=== PATIENT | male | born 1950 | race Caucasian/White ===

== ENCOUNTER → 2021-01-27 | Outpatient (CLI) | payer MEDICARE | LOC: NM 10:47 | DX: R06.02 Shortness of breath (principal); I20.8 Other forms of angina pectoris | CPT/HCPCS: 71046 ==

== ENCOUNTER → 2021-02-04 | Outpatient (CLI) | payer MEDICARE | LOC: NM 08:48 | DX: I20.8 Other forms of angina pectoris (principal); I45.10 Unspecified right bundle-branch block; I49.3 Ventricular premature depolarization; R94.39 Abnormal result of other cardiovascular function study; I51.89 Other ill-defined heart diseases | CPT/HCPCS: 78452; 93017; A9502 ==

== ENCOUNTER → 2021-06-04 | Day surgery (SDC) | payer MEDICARE ==
[~2021-06-04] MED LIST: AMLODIPINE BES2.5 MG PO; ASPIRIN325 MG PO; ATORVASTATIN CA40 MG PO; LISINOPRIL40 MG PO; METOPROLOL SUC100 MG PO
== END | disposition home or self-care (01) ==
LOC: CATH 09:37
DX: I25.118 Atherosclerotic heart disease of native coronary artery with other forms of angina pectoris (principal); I11.0 Hypertensive heart disease with heart failure; I50.9 Heart failure, unspecified; I08.3 Combined rheumatic disorders of mitral, aortic and tricuspid valves; I48.91 Unspecified atrial fibrillation; I42.9 Cardiomyopathy, unspecified; I27.20 Pulmonary hypertension, unspecified; J98.4 Other disorders of lung; I25.2 Old myocardial infarction; I47.2 Ventricular tachycardia; E78.5 Hyperlipidemia, unspecified; Z20.822 Contact with and (suspected) exposure to COVID-19; Z95.1 Presence of aortocoronary bypass graft; Z98.61 Coronary angioplasty status
CPT/HCPCS: 93312; 93320; J2250; J2310; J3010; U0002

== ENCOUNTER 2022-04-05 11:59 | Emergency (ER) | payer MEDICARE ==
[2022-04-05 12:50] LABS: HEMOGLOBIN 16.7 gm/dl (14.0-17.5); RED BLOOD COUNT 5.25 M/UL (4.20-5.50); WHITE BLOOD COUNT 8.1 K/UL (4.5-11.0)
[2022-04-05 14:24] LABS: BUN/CREATININE RATIO 20 (0-10)
[2022-04-05] MEDS ORDERED: HYDROCODON-ACE1 EAC4 PO (15:23)
== END 2022-04-05 16:07 | disposition home or self-care (01) ==
LOC: ER1 11:59
PROVIDERS: Emergency Medicine
DX: N13.2 Hydronephrosis with renal and ureteral calculous obstruction (principal); I10 Essential (primary) hypertension; Z87.442 Personal history of urinary calculi; Z95.1 Presence of aortocoronary bypass graft
CPT/HCPCS: 80053; 81001; 83690; 85025; 96374; 96375; 99284; J1885; J2270; J2405